=== PATIENT | male | born 1995 | race African-American/Black ===

== ENCOUNTER 2021-03-14 18:28 | Emergency (ER) | payer OTHER, SELFPAY ==
[~2021-03-14] VITALS: Ht 193 cm; Wt 80.9 kg
[2021-03-14] MEDS ORDERED: LIDOCAINE VISCOUS 2% SOLN 15ML UDC SSP ONE (19:55)
[2021-03-14 20:25] LABS: BASO % 0.3 % (0.0-1.0); EOS % 0.7 % (0.0-3.0); HEMATOCRIT 47.1 % (42.0-52.0); HEMOGLOBIN 15.4 g/dl (13.5-17.5); LYMPH # 1.6 10^3/uL (1.5-5.0); LYMPH % 26.3 % (24.0-44.0); MEAN CORPUSCULAR HEMOGLOBIN 29.4 pg (27.0-33.0); MEAN CORPUSCULAR HGB CONC 32.7 g/dl (32.0-36.5); MEAN CORPUSCULAR VOLUME 89.9 fl (80.0-96.0); MONO # 0.4 10^3/uL (0.0-0.8); MONO % 6.9 % (2.0-8.0); NEUTROPHILS # 3.9 10^3/uL (1.5-8.5); NEUTROPHILS % 65.6 % (36.0-66.0); PLATELET COUNT, AUTOMATED 147 10^3/uL (150-450); RED BLOOD COUNT 5.24 10^6/uL (4.30-6.10); WHITE BLOOD COUNT 5.9 10^3/uL (4.0-10.0)
[2021-03-14] MEDS ORDERED: ISOVUE-370 76% 100ML VIAL As Ordered ONE (20:46)
[2021-03-14 20:55] LABS: ALBUMIN 4.2 GM/DL (3.2-5.2); ALT/SGPT 34 U/L (12-78); BILIRUBIN,DIRECT 0.1 MG/DL (0.0-0.2); BILIRUBIN,TOTAL 0.5 MG/DL (0.2-1.0); ETHYL ALCOHOL (ETHANOL) < 0.003 % (0.000-0.010); TOTAL PROTEIN 7.6 GM/DL (6.4-8.2)
[2021-03-14 23:00] VITALS: BP 127/67
== END 2021-03-14 23:21 | disposition home or self-care (01) ==
LOC: M ED 18:28
DX: Z04.1 Encounter for examination and observation following transport accident (principal)
CPT/HCPCS: 36415; 70450; 71275; 72125; 74177; 80047; 80076; 82077; 84443; 85025; 93005; 93041; 94760; 99284; Q9967

== ENCOUNTER 2021-04-08 18:08 | Emergency (ER) | payer OTHER ==
[~2021-04-08] VITALS: Ht 193 cm; Wt 80.9 kg
[2021-04-08 18:09] VITALS: BP 140/70
== END 2021-04-08 22:32 | disposition left against medical advice (07) ==
LOC: M ED 18:08
DX: Z53.21 Procedure and treatment not carried out due to patient leaving prior to being seen by health care provider (principal)

== ENCOUNTER 2021-04-09 13:14 | Emergency (ER) | payer OTHER ==
[~2021-04-09] VITALS: Ht 193 cm; Wt 80.9 kg
[2021-04-09 13:15] VITALS: BP 134/64
== END 2021-04-09 13:30 | disposition left against medical advice (07) ==
LOC: M ED 13:14
DX: Z53.29 Procedure and treatment not carried out because of patient's decision for other reasons (principal)

== ENCOUNTER 2021-04-24 10:19 | Emergency (ER) | payer OTHER ==
[~2021-04-24] VITALS: Ht 193 cm; Wt 83.5 kg
--- NOTE | 2021-04-24 11:56 | REP ---
INDICATION: trauma COMPARISON: None TECHNIQUE: AP and lateral views FINDINGS: AP and lateral views cannot rule out a fracture. If a fracture is of clinical concern a trauma series of 5 views is recommended as per department policy. This limited two view examination shows no gross fracture. The compartments appear symmetric and well maintained. There is no evidence of a destructive osseous lesion. IMPRESSION: Negative limited two view examination as described above. <Electronically signed by Aaron Marrero > 04/24/21 1285
[2021-04-24] MEDS ORDERED: KETOROLAC TROMETHAMINE 10 MG TAB PO ONE (12:15)
[2021-04-24 12:34] VITALS: BP 117/75
== END 2021-04-24 12:59 | disposition home or self-care (01) ==
LOC: M ED 10:19
DX: S83.412A Sprain of medial collateral ligament of left knee, initial encounter (principal); X50.9XXA Other and unspecified overexertion or strenuous movements or postures, initial encounter; Y92.89 Other specified places as the place of occurrence of the external cause; Y93.61 Activity, american tackle football

== ENCOUNTER → 2021-04-29 | Outpatient (CLI) | payer OTHER | LOC: M CARPUL 04-28 12:11 | PROVIDERS: ATTEND Physician Assistant | DX: R55 Syncope and collapse (principal) ==